=== PATIENT | female | born 1935 | race Caucasian/White ===

== ENCOUNTER 2016-06-06 07:08 | Inpatient (IN) | payer OTHER ==
[2016-06-06] VITALS (13 sets, daily range): BP systolic 108–151; BP diastolic 53–79
[~2016-06-06] VITALS: Ht 154.9 cm; Wt 111.1 kg
[~2016-06-06 07:08] MED LIST: ADULT LOW DOSE81 M1 PO; AMARYL1 MG PO; ASPIRIN81 M2 PO; CARDURA8 MG PO; CATAPRES0.2 MG PO; CRESTOR5 MG PO; DIOVAN320 MG PO; FLEXERIL5 MG PO; GLIPIZIDE XL10 MG PO; JANUVIA100 MG PO; KLOR-CON 1010 ME1 PO; LEVAQUIN500 MG PO; LEVEMIR FL100 UNIT/1 SC; METOPROLOL TAR100 MG PO; MULTIVITAMIN1 EAC2 PO; NYSTATIN15 GM TP; VICTOZA0.6 MG/0.1 SC; VITAMIN D1000 UNIT PO; VITAMIN D31000 UNIT PO
[2016-06-06 08:24] LABS: POINT-OF-CARE METER ID UU14174212
[2016-06-06 12:14] LABS: POINT-OF-CARE USER ID 515036437
[2016-06-06] MEDS ORDERED: NUCYNTA50 MG PO (14:02)
[2016-06-06 15:48] LABS: METH RESISTANT S AUREUS PCR NEGATIVE (NEGATIVE)
[2016-06-06 15:49] LABS: PROBE CHECK PASS; SPECIMEN PROCESSING CONTROL PASS
[2016-06-06 16:17] LABS: POINT-OF-CARE METER ID UU13113748
[2016-06-06 22:10] LABS: POINT-OF-CARE METER ID UU13113748
[2016-06-07] VITALS (12 sets, daily range): BP systolic 0–143; BP diastolic 0–85
== END 2016-06-07 16:36 | disposition home or self-care (01) | DRG 37 ==
LOC: 2SOUTH 07:08 → 4WEST 14:04
PROVIDERS: Surgery
PROC: 03CK0Z6 (ICD-10-PCS; principal; 2016-06-06)
DX: I65.21 Occlusion and stenosis of right carotid artery (principal); I12.0 Hypertensive chronic kidney disease with stage 5 chronic kidney disease or end stage renal disease; N18.6 End stage renal disease; I45.2 Bifascicular block; Z68.42 Body mass index [BMI] 45.0-49.9, adult; E78.5 Hyperlipidemia, unspecified; E11.9 Type 2 diabetes mellitus without complications; I35.0 Nonrheumatic aortic (valve) stenosis; C55 Malignant neoplasm of uterus, part unspecified; Z88.5 Allergy status to narcotic agent; Z85.038 Personal history of other malignant neoplasm of large intestine; Z79.4 Long term (current) use of insulin; E66.01 Morbid (severe) obesity due to excess calories
CPT/HCPCS: 82948; 87641; 93005; 94760; 94799; J0360; J0690; J1644; J1650; J1815; J2250; J2405; J2720; J2765; J2795; J3010; J7120

== ENCOUNTER 2016-09-20 23:18 | Emergency (ER) | payer OTHER ==
[~2016-09-20] VITALS: Ht 154.9 cm; Wt 106.0 kg
[~2016-09-20 23:18] MED LIST changes: +NUCYNTA50 MG PO
[2016-09-21] MEDS ORDERED: AMOXICILLIN875 MG PO (00:34)
[2016-09-21 01:05] VITALS: BP 149/72
== END 2016-09-21 01:07 | disposition home or self-care (01) ==
LOC: EME 23:18
PROC: 2Y41X5Z Packing of Nasal Region using Packing Material (ICD-10-PCS; principal; 2016-09-20)
DX: R04.0 Epistaxis (principal); I10 Essential (primary) hypertension; E78.5 Hyperlipidemia, unspecified; E11.9 Type 2 diabetes mellitus without complications; Z79.4 Long term (current) use of insulin; Z79.82 Long term (current) use of aspirin
CPT/HCPCS: 99281; 99284

== ENCOUNTER 2017-09-13 18:08 | Inpatient (IN) | payer OTHER ==
[~2017-09-13] VITALS: Ht 154.9 cm; Wt 121.2 kg
[~2017-09-13 18:08] MED LIST changes: +AMOXICILLIN875 MG PO
[2017-09-13 18:31] LABS: HEMATOCRIT 45.4 % (36.0-46.0); HEMOGLOBIN 15.6 G/DL (11.9-15.5); MCH 32.4 PG (29.0-34.0); MCHC 34.4 G/DL (30.0-36.0); MCV 94.2 FL (83-99); PLATELET COUNT 178 K/uL (156-360); RBC DIS.WIDTH-CV 13.7 % (11.8-14.6); RBC DIS.WIDTH-SD 47.8 % (39-53); RED BLOOD COUNT 4.82 M/uL (3.80-5.20); WHITE BLOOD COUNT 14.7 K/uL (4.1-10.2)
[2017-09-13 18:44] LABS: ALBUMIN 3.6 g/dL (3.2-4.8); CHLORIDE 102 mEq/L (99-109); POTASSIUM 3.9 mEq/L (3.7-5.4); SODIUM 139 mEq/L (136-147)
[2017-09-13 18:46] LABS: GLUCOSE 183 mg/dL (70-99); TOTAL PROTEIN 7.5 g/dL (6.4-8.3)
[2017-09-13 18:48] LABS: TOTAL BILIRUBIN 2.6 mg/dL (0.0-1.0)
[2017-09-13 18:50] LABS: ALKALINE PHOSPHATASE 63 IU/L (3-129); CREATININE 2.5 mg/dL (0.6-1.3); GFR ESTIMATE (CALCULATED) 20 mL/min/
[2017-09-13 18:51] LABS: UREA NITROGEN (BUN) 48 mg/dL (9-23)
[2017-09-13 18:52] LABS: AST (GOT) 27 IU/L (2-34)
[2017-09-13 18:53] LABS: ALT (GPT) 24 IU/L (3-49)
[2017-09-13 20:58] LABS: INTER. NORMALIZED RATIO 1.2
[2017-09-13 21:00] LABS: PTT 26.3 SEC (25-37)
[2017-09-13] MEDS ORDERED: TRESIBA FL100 UNIT/1 SC (21:04)
[2017-09-13] MEDS ORDERED: NEOMYC-POLYM-DEX5 ML RIGHT EYE (21:06)
[2017-09-14] VITALS (8 sets, daily range): BP systolic 106–152; BP diastolic 52–67
[2017-09-14 07:37] LABS: HEMATOCRIT 42.5 % (36.0-46.0); MCH 31.4 PG (29.0-34.0); MCHC 32.9 G/DL (30.0-36.0); MCV 95.3 FL (83-99); PLATELET COUNT 182 K/uL (156-360); RBC DIS.WIDTH-CV 13.7 % (11.8-14.6); RBC DIS.WIDTH-SD 48.1 % (39-53); RED BLOOD COUNT 4.46 M/uL (3.80-5.20); WHITE BLOOD COUNT 12.6 K/uL (4.1-10.2)
[2017-09-14 07:58] LABS: CHLORIDE 107 MEQ/L (99-109); CREATININE 1.7 MG/DL (0.6-1.3); GFR ESTIMATE (CALCULATED) 31 mL/min/; GLUCOSE 71 mg/dL (70-99); POTASSIUM 3.6 MEQ/L (3.7-5.4); SODIUM 143 MEQ/L (136-147); UREA NITROGEN (BUN) 44 mg/dL (9-23)
[2017-09-15] VITALS (7 sets, daily range): BP systolic 117–160; BP diastolic 56–82
[2017-09-15 07:17] LABS: BASOPHIL (%) 0.3 % (0-1); EOSINOPHIL (%) 1.3 % (0-5); EOSINOPHIL COUNT 0.1 K/uL (0-0.3); HEMATOCRIT 42.5 % (36.0-46.0); HEMOGLOBIN 13.5 G/DL (11.9-15.5); IMMATURE GRANULOCYTE (%) 0.4 % (0.0-0.7); LYMPHOCYTE (%) 11.7 % (15-42); LYMPHOCYTE COUNT 1.2 K/uL (1.0-2.8); MCH 30.8 PG (29.0-34.0); MCHC 31.8 G/DL (30.0-36.0); MCV 96.8 FL (83-99); MONOCYTE (%) 10.1 % (3-12); MONOCYTE COUNT 1.1 K/uL (0-0.8); NEUTROPHIL (%) 76.2 % (45-76); NEUTROPHIL COUNT 7.9 K/uL (1.8-6.4); PLATELET COUNT 181 K/uL (156-360); RBC DIS.WIDTH-CV 13.3 % (11.8-14.6); RBC DIS.WIDTH-SD 48.2 % (39-53); RED BLOOD COUNT 4.39 M/uL (3.80-5.20); WHITE BLOOD COUNT 10.4 K/uL (4.1-10.2)
[2017-09-15 07:43] LABS: ALBUMIN 2.8 G/DL (3.2-4.8); ALKALINE PHOSPHATASE 68 IU/L (3-129); ALT (GPT) 27 IU/L (3-49); AST (GOT) 30 IU/L (2-34); CHLORIDE 110 MEQ/L (99-109); CREATININE 1.2 MG/DL (0.6-1.3); GFR ESTIMATE (CALCULATED) 46 mL/min/; GLUCOSE 123 mg/dL (70-99); POTASSIUM 4.2 MEQ/L (3.7-5.4); SODIUM 144 MEQ/L (136-147); TOTAL BILIRUBIN 1.7 MG/DL (0.0-1.0); TOTAL PROTEIN 5.4 G/DL (6.4-8.3); UREA NITROGEN (BUN) 33 mg/dL (9-23)
[2017-09-16 04:00] VITALS: BP 146/66
[2017-09-16 04:58] LABS: HEMATOCRIT 39.2 % (36.0-46.0); HEMOGLOBIN 12.8 G/DL (11.9-15.5); MCH 31.8 PG (29.0-34.0); MCHC 32.7 G/DL (30.0-36.0); MCV 97.3 FL (83-99); PLATELET COUNT 194 K/uL (156-360); RBC DIS.WIDTH-CV 13.4 % (11.8-14.6); RBC DIS.WIDTH-SD 48.1 % (39-53); RED BLOOD COUNT 4.03 M/uL (3.80-5.20); WHITE BLOOD COUNT 7.6 K/uL (4.1-10.2)
[2017-09-16 05:11] LABS: ALBUMIN 2.5 g/dL (3.2-4.8)
[2017-09-16 05:12] LABS: POTASSIUM 4.8 mEq/L (3.7-5.4); SODIUM 142 mEq/L (136-147)
[2017-09-16 05:17] LABS: ALKALINE PHOSPHATASE 70 IU/L (3-129)
[2017-09-16 05:18] LABS: CREATININE 1.2 mg/dL (0.6-1.3); GFR ESTIMATE (CALCULATED) 46 mL/min/
[2017-09-16 05:19] LABS: UREA NITROGEN (BUN) 24 mg/dL (9-23)
[2017-09-16 05:20] LABS: ALT (GPT) 36 IU/L (3-49)
[2017-09-16 05:21] LABS: AST (GOT) 45 IU/L (2-34); CHLORIDE 115 mEq/L (99-109); GLUCOSE 271 mg/dL (70-99); TOTAL BILIRUBIN 1.1 mg/dL (0.0-1.0); TOTAL PROTEIN 5.9 g/dL (6.4-8.3)
[2017-09-16 08:16] VITALS: BP 155/71
[2017-09-16 11:04] VITALS: BP 99/52
[2017-09-16 15:43] VITALS: BP 120/64
[2017-09-16 19:47] VITALS: BP 148/66
[2017-09-17] VITALS (7 sets, daily range): BP systolic 135–149; BP diastolic 61–89
[2017-09-17 05:10] LABS: HEMATOCRIT 40.8 % (36.0-46.0); MCH 31.2 PG (29.0-34.0); MCHC 31.9 G/DL (30.0-36.0); MCV 97.8 FL (83-99); PLATELET COUNT 238 K/uL (156-360); RBC DIS.WIDTH-CV 13.4 % (11.8-14.6); RED BLOOD COUNT 4.17 M/uL (3.80-5.20); WHITE BLOOD COUNT 8.6 K/uL (4.1-10.2)
[2017-09-17 07:15] LABS: ALBUMIN 2.3 G/DL (3.2-4.8); ALKALINE PHOSPHATASE 60 IU/L (3-129); ALT (GPT) 23 IU/L (3-49); AST (GOT) 17 IU/L (2-34); CHLORIDE 113 MEQ/L (99-109); GFR ESTIMATE (CALCULATED) 57 mL/min/; GLUCOSE 67 mg/dL (70-99); POTASSIUM 4.2 MEQ/L (3.7-5.4); SODIUM 144 MEQ/L (136-147); TOTAL BILIRUBIN 0.6 MG/DL (0.0-1.0); TOTAL PROTEIN 4.5 G/DL (6.4-8.3); UREA NITROGEN (BUN) 15 mg/dL (9-23)
[2017-09-18 00:01] VITALS: BP 141/71
[2017-09-18 04:08] VITALS: BP 125/58
[2017-09-18 07:33] VITALS: BP 165/72
[2017-09-18 11:46] VITALS: BP 120/58
[2017-09-18 15:47] VITALS: BP 162/66
[2017-09-18 21:06] VITALS: BP 171/74
[2017-09-19 00:28] VITALS: BP 156/70
[2017-09-19 04:19] VITALS: BP 141/63
[2017-09-19 06:30] LABS: HEMATOCRIT 39.3 % (36.0-46.0); HEMOGLOBIN 12.8 G/DL (11.9-15.5); MCHC 32.6 G/DL (30.0-36.0); MCV 98.3 FL (83-99); PLATELET COUNT 235 K/uL (156-360); RBC DIS.WIDTH-CV 13.2 % (11.8-14.6); RBC DIS.WIDTH-SD 47.8 % (39-53); WHITE BLOOD COUNT 5.7 K/uL (4.1-10.2)
[2017-09-19 06:59] LABS: CHLORIDE 108 MEQ/L (99-109); CREATININE 0.9 MG/DL (0.6-1.3); GFR ESTIMATE (CALCULATED) > 59 mL/min/; POTASSIUM 4.2 MEQ/L (3.7-5.4); SODIUM 143 MEQ/L (136-147); UREA NITROGEN (BUN) 12 mg/dL (9-23)
[2017-09-19 07:01] LABS: GLUCOSE 176 mg/dL (70-99)
[2017-09-19 08:08] VITALS: BP 159/71
[2017-09-19] MEDS ORDERED: DOCUSATE SODIU100 MG PO (09:10)
[2017-09-19] MEDS ORDERED: LEVAQUIN750 MG PO (09:10)
== END 2017-09-19 17:01 | disposition home health service (06) | DRG 417 ==
LOC: EME 18:08 → 2EAST 23:12 → 4EAST 23:12 → EDOF 23:12 → ENRESERV 23:13 → 2EAST 09-14 00:41 → ENRESERV 09-15 18:22 → 4EAST 09-15 19:29 → ENRESERV 09-17 16:03 → 2EAST 09-17 18:05 → ENPENDDIS 09-19 12:20 → 2EAST 09-19 17:01
PROVIDERS: Emergency Medicine; Hospitalist; Surgery
PROC: 0FT44ZZ Resection of Gallbladder, Percutaneous Endoscopic Approach (ICD-10-PCS; principal; 2017-09-15)
PROC: 0FN44ZZ Release Gallbladder, Percutaneous Endoscopic Approach (ICD-10-PCS; principal; 2017-09-15)
DX: K80.12 Calculus of gallbladder with acute and chronic cholecystitis without obstruction (principal); N17.9 Acute kidney failure, unspecified; J96.01 Acute respiratory failure with hypoxia; J15.9 Unspecified bacterial pneumonia; E86.0 Dehydration; E87.6 Hypokalemia; K66.0 Peritoneal adhesions (postprocedural) (postinfection); I12.9 Hypertensive chronic kidney disease with stage 1 through stage 4 chronic kidney disease, or unspecified chronic kidney disease; N18.3 Chronic kidney disease, stage 3 (moderate); E11.22 Type 2 diabetes mellitus with diabetic chronic kidney disease; E11.65 Type 2 diabetes mellitus with hyperglycemia; E78.5 Hyperlipidemia, unspecified; E66.01 Morbid (severe) obesity due to excess calories; Z68.43 Body mass index [BMI] 50.0-59.9, adult; Z79.4 Long term (current) use of insulin; Z79.82 Long term (current) use of aspirin; Z85.038 Personal history of other malignant neoplasm of large intestine; Z85.42 Personal history of malignant neoplasm of other parts of uterus; Z85.828 Personal history of other malignant neoplasm of skin
CPT/HCPCS: 71046; 74176; 76705; 80048; 80053; 81003; 82948; 85025; 85027; 85610; 85730; 86850; 86900; 86901; 87070; 87075; 87205; 87449; 88304; 93005; 94799; 97530 GO; 99281; 99285; J0131; J0330; J0692; J0696; J1100; J1644; J1815; J1956; J2405; J2543; J3010; J7030; J7042; J7050; J7120; S0028; S0030